=== PATIENT | female | born 1980 | race Caucasian/White ===

== ENCOUNTER 2024-04-04 14:05 | Inpatient (IN) | payer OTHER ==
[~2024-04-04] VITALS: Ht 165.1 cm; Wt 65.8 kg
[2024-04-04 14:11] VITALS: BP 99/64
[2024-04-04] MEDS ORDERED: PROZAC20 MG PO (14:16)
[2024-04-04] MEDS ORDERED: diphenhydrAMINE hydrochloride 50 MG/ML VIAL IV ONE (14:55)
[2024-04-04] MEDS ORDERED: Ketorolac Tromethamine 15 MG/ML VIAL IV ONE (14:55)
[2024-04-04] MEDS ORDERED: Metoclopramide Hydrochloride 10 MG/2 ML AMP IV ONE (14:55)
[2024-04-04] MEDS ORDERED: IOHEXOL 300 MG/ML 100 ML VIAL IV ONE (15:05)
[2024-04-04 15:11] LABS: BASO % 0.1 % (0.0-1.0); EOS # 0.1 10*3/uL (0.0-0.4); EOS % 0.9 % (1.0-4.0); HEMATOCRIT 34.1 % (37.0-47.0); LYMPH # 1.1 10*3/uL (1.3-4.4); LYMPH % 13.4 % (27.0-41.0); MEAN CELL VOLUME 93.4 fl (81.0-99.0); MEAN CORPUSCULAR HGB 30.4 pg (27.0-31.0); MEAN CORPUSCULAR HGB CONC 32.6 g/dl (33.0-37.0); MEAN PLATELET VOLUME 9.2 fl (9.6-12.3); MONO # 0.3 10*3/uL (0.1-1.0); MONO % 3.7 % (3.0-9.0); NEUT # 6.9 10*3/uL (2.3-7.9); NEUT % 81.7 % (47.0-73.0); PLATELET COUNT AUTOMATED 230 10*3/uL (130-400); RED BLOOD COUNT 3.65 10*6/uL (4.10-5.10); RED CELL DISTRI WIDTH 12.7 % (0-14.5); WHITE BLOOD COUNT 8.5 10*3/uL (4.8-10.8)
[2024-04-04 15:25] LABS: BUN 6 mg/dl (9-23); CHLORIDE 102 mmol/L (98-107); POTASSIUM 3.9 mmol/L (3.4-5.1)
[2024-04-04] MEDS ORDERED: MORPHINE Sulfate 2 MG/ML SYR IV ONE (15:40)
[2024-04-04] MEDS ORDERED: ASPIRIN, CHEWABLE 81 MG TAB PO ONE (15:40)
[2024-04-04] MEDS ORDERED: BISACODYL 5 MG TAB PO PRN (19:40)
[2024-04-04] MEDS ORDERED: ACETAMINOPHEN 325 MG TAB PO PRN (19:40)
[2024-04-04] MEDS ORDERED: Acetaminophen/Hydrocodone 5 MG/325 MG TABLET PO PRN (19:40)
[2024-04-04] MEDS ORDERED: TEMAZEPAM 15 MG CAP PO PRN (19:40)
[2024-04-04] MEDS ORDERED: MORPHINE Sulfate 2 MG/ML SYR IV PRN (19:40)
[2024-04-04] MEDS ORDERED: Magnesium Hydroxide 30 ML UDC PO PRN (19:40)
[2024-04-04] MEDS ORDERED: Ondansetron Hydrochloride 4 MG/2 ML VIAL IV PRN (19:40)
[2024-04-04 20:07] VITALS: BP 93/54
[2024-04-04 20:55] LABS: BILIRUBIN Negative (Negative); BLOOD Negative (Negative); CLARITY Clear (Clear); COLOR Yellow (Yellow); GLUCOSE Negative (Negative); KETONE Negative (Negative); LEUKO ESTERASE Trace (Negative); NITRITE Negative (Negative); SPECIFIC GRAVITY 1.025 (1.001-1.030); UROBILINOGEN 0.2 E.U./dl (0.0-1.0)
[2024-04-04 21:35] LABS: BACTERIA TRACE; WBC 0-2 wbc/hpf (0-5)
[2024-04-04] MEDS ORDERED: Enoxaparin Sodium 80 MG/0.8 ML SYR SC SCH (22:00)
[2024-04-04] MEDS ORDERED: Enoxaparin Sodium 100 MG/ML SYR SC SCH (22:00)
[2024-04-04] MEDS ORDERED: Ceftriaxone Sodium 1 GM in SYRINGE INFUSION 10 ML IV SCH (23:00)
[2024-04-05] VITALS (8 sets, daily range): BP systolic 78–149; BP diastolic 42–80
[2024-04-05] MEDS ORDERED: ADDERALL15 MG PO (02:33)
[2024-04-05] MEDS ORDERED: VYVANSE30 MG PO (02:35)
[2024-04-05] MEDS ORDERED: SODIUM CHLORIDE 0.9% 1,000 ML IV ONE (05:00)
[2024-04-05] MEDS ORDERED: fentaNYL CITRATE 100 MCG/2 ML VIAL IV ONE ×2 (06:10→08:15)
[2024-04-05 06:15] LABS: BASO % 0.2 % (0.0-1.0); EOS # 0.1 10*3/uL (0.0-0.4); EOS % 0.9 % (1.0-4.0); HEMATOCRIT 32.5 % (37.0-47.0); LYMPH # 1.2 10*3/uL (1.3-4.4); LYMPH % 13.5 % (27.0-41.0); MEAN CELL VOLUME 92.6 fl (81.0-99.0); MEAN CORPUSCULAR HGB 30.5 pg (27.0-31.0); MEAN CORPUSCULAR HGB CONC 32.9 g/dl (33.0-37.0); MEAN PLATELET VOLUME 9.9 fl (9.6-12.3); MONO # 0.4 10*3/uL (0.1-1.0); MONO % 4.1 % (3.0-9.0); NEUT # 7.4 10*3/uL (2.3-7.9); NEUT % 81.1 % (47.0-73.0); PLATELET COUNT AUTOMATED 270 10*3/uL (130-400); RED BLOOD COUNT 3.51 10*6/uL (4.10-5.10); RED CELL DISTRI WIDTH 12.8 % (0-14.5); WHITE BLOOD COUNT 9.1 10*3/uL (4.8-10.8)
[2024-04-05 06:43] LABS: ACT PARTIAL THROMBO TIME 29.4 SECONDS (20.0-32.1)
[2024-04-05 06:52] LABS: ALKALINE PHOSPHATASE 96 U/L (46-116); BUN 7 mg/dl (9-23); CHLORIDE 101 mmol/L (98-107); CHOLESTEROL 171 mg/dL (<200); LDL CHOLESTEROL 95 mg/dL (9-159); POTASSIUM 3.7 mmol/L (3.4-5.1); SGPT/ALT 15 U/L (5-49); TOTAL PROTEIN 7.1 gm/dL (6.0-8.0); TRIGLYCERIDES 69 mg/dl (<150)
[2024-04-05 07:11] LABS: FREE T4 1.18 ng/dl (0.89-1.76)
[2024-04-05 08:53] LABS: VITAMIN D, 25-HYDROXY 32.9 ng/mL (30-100)
[2024-04-05] MEDS ORDERED: ASPIRIN ENTERIC COATED 81 MG TAB PO SCH (10:00)
[2024-04-05] MEDS ORDERED: Enoxaparin Sodium 80 MG/0.8 ML SYR SC SCH (10:00)
[2024-04-05] MEDS ORDERED: Fluoxetine Hydrochloride 20 MG CAP PO SCH (10:00)
[2024-04-05] MEDS ORDERED: Amphetamine Salt Combination 5 MG TAB PO SCH (10:00)
[2024-04-05] MEDS ORDERED: ATORVASTATIN CALCIUM 40 MG TABLET PO SCH (10:00)
[2024-04-05] MEDS ORDERED: Meropenem 1 GM in SODIUM CHLORIDE 0.9% 100 ML IV SCH (14:00)
[2024-04-05] MEDS ORDERED: VANCOMYCIN/WATER FOR INJ (PEG) 250 ML IV SCH (15:00)
[2024-04-06] VITALS: BP 108/70
[2024-04-06 06:49] LABS: BASO % 0.1 % (0.0-1.0); EOS # 0.1 10*3/uL (0.0-0.4); HEMATOCRIT 30.3 % (37.0-47.0); LYMPH # 1.1 10*3/uL (1.3-4.4); LYMPH % 16.1 % (27.0-41.0); MEAN CELL VOLUME 95.3 fl (81.0-99.0); MEAN CORPUSCULAR HGB 30.8 pg (27.0-31.0); MEAN CORPUSCULAR HGB CONC 32.3 g/dl (33.0-37.0); MEAN PLATELET VOLUME 10.1 fl (9.6-12.3); MONO # 0.4 10*3/uL (0.1-1.0); MONO % 5.3 % (3.0-9.0); NEUT # 5.4 10*3/uL (2.3-7.9); NEUT % 77.2 % (47.0-73.0); PLATELET COUNT AUTOMATED 200 10*3/uL (130-400); RED BLOOD COUNT 3.18 10*6/uL (4.10-5.10); RED CELL DISTRI WIDTH 12.9 % (0-14.5)
[2024-04-06 07:19] LABS: BUN 7 mg/dl (9-23); CHLORIDE 101 mmol/L (98-107); POTASSIUM 4.2 mmol/L (3.4-5.1)
[2024-04-06 08:00] VITALS: BP 97/54
[2024-04-06] MEDS ORDERED: Ondansetron Hydrochloride 4 MG/2 ML VIAL IV ONE (09:25)
[2024-04-06 12:00] VITALS: BP 92/47
[2024-04-06] MEDS ORDERED: Technetium Tc 99M Tetrofosmi 0.23 MG KIT IJ SCH (12:45)
[2024-04-06 16:00] VITALS: BP 92/54
[2024-04-06] MEDS ORDERED: VANCOMYCIN/WATER FOR INJ (PEG) 250 ML IV SCH (16:00)
[2024-04-06 16:07] VITALS: BP 100/60
[2024-04-06 20:00] VITALS: BP 98/58
[2024-04-06] MEDS ORDERED: ATORVASTATIN CALCIUM 20 MG TAB PO SCH (22:00)
[2024-04-07] VITALS: BP 96/53
[2024-04-07] MEDS ORDERED: Regadenoson 0.4 MG/5 ML SYR IV ONE (05:18)
[2024-04-07] MEDS ORDERED: fentaNYL CITRATE 100 MCG/2 ML VIAL IV ONE (06:35)
[2024-04-07 07:21] LABS: BASO % 0.6 % (0.0-1.0); EOS # 0.1 10*3/uL (0.0-0.4); EOS % 2.6 % (1.0-4.0); HEMATOCRIT 31.4 % (37.0-47.0); LYMPH # 1.9 10*3/uL (1.3-4.4); LYMPH % 38.6 % (27.0-41.0); MEAN CORPUSCULAR HGB 30.8 pg (27.0-31.0); MEAN CORPUSCULAR HGB CONC 32.8 g/dl (33.0-37.0); MEAN PLATELET VOLUME 9.9 fl (9.6-12.3); MONO # 0.3 10*3/uL (0.1-1.0); MONO % 6.2 % (3.0-9.0); NEUT # 2.6 10*3/uL (2.3-7.9); NEUT % 51.8 % (47.0-73.0); PLATELET COUNT AUTOMATED 237 10*3/uL (130-400); RED BLOOD COUNT 3.34 10*6/uL (4.10-5.10); RED CELL DISTRI WIDTH 12.9 % (0-14.5)
[2024-04-07 07:42] LABS: ALKALINE PHOSPHATASE 92 U/L (46-116); BUN 7 mg/dl (9-23); CHLORIDE 101 mmol/L (98-107); POTASSIUM 3.8 mmol/L (3.4-5.1); SGPT/ALT 21 U/L (5-49); TOTAL PROTEIN 7.1 gm/dL (6.0-8.0)
[2024-04-07 08:00] VITALS: BP 103/58
[2024-04-07] MEDS ORDERED: VANCOMYCIN/WATER FOR INJ (PEG) 150 ML IV SCH (10:00)
[2024-04-07] MEDS ORDERED: AMINOPHYLLINE 250 MG/10 ML VIAL IV ONE ×2 (10:33→11:30)
[2024-04-07 12:00] VITALS: BP 118/70
[2024-04-07 16:00] VITALS: BP 108/61
[2024-04-07 20:00] VITALS: BP 90/48
[2024-04-08] VITALS: BP 92/53
[2024-04-08 06:46] LABS: BASO % 0.8 % (0.0-1.0); EOS # 0.1 10*3/uL (0.0-0.4); EOS % 2.7 % (1.0-4.0); HEMATOCRIT 31.3 % (37.0-47.0); LYMPH % 40.7 % (27.0-41.0); MEAN CELL VOLUME 93.7 fl (81.0-99.0); MEAN CORPUSCULAR HGB 30.5 pg (27.0-31.0); MEAN CORPUSCULAR HGB CONC 32.6 g/dl (33.0-37.0); MEAN PLATELET VOLUME 9.7 fl (9.6-12.3); MONO # 0.4 10*3/uL (0.1-1.0); MONO % 8.4 % (3.0-9.0); NEUT # 2.3 10*3/uL (2.3-7.9); PLATELET COUNT AUTOMATED 245 10*3/uL (130-400); RED BLOOD COUNT 3.34 10*6/uL (4.10-5.10); RED CELL DISTRI WIDTH 12.9 % (0-14.5); WHITE BLOOD COUNT 4.9 10*3/uL (4.8-10.8)
[2024-04-08 07:14] LABS: BUN 7 mg/dl (9-23); CHLORIDE 100 mmol/L (98-107); POTASSIUM 4.1 mmol/L (3.4-5.1)
[2024-04-08 08:00] VITALS: BP 103/53
[2024-04-08] MEDS ORDERED: ATORVASTATIN CA20 M1 PO (09:45)
[2024-04-08] MEDS ORDERED: BACTRIM 400-801 EACH PO (09:45)
[2024-04-08] MEDS ORDERED: ASPIRIN ADULT L81 M2 PO (09:45)
[2024-04-08] MEDS ORDERED: HYDROCODONE-AC1 EAC1 PO (09:47)
== END 2024-04-08 11:15 | disposition home or self-care (01) | DRG 190 ==
LOC: ED 14:05 → 4E 18:43 → EDHOLD 18:43 → 4E 20:21
PROVIDERS: Emergency Medicine; Family Medicine; Internal Medicine; Student in an Organized Health Care Education/Training Program; ADMIT Internal Medicine; ATTEND Internal Medicine
PROC: 4A02XM4 Measurement of Cardiac Total Activity, External Approach (ICD-10-PCS; principal; 2024-04-07)
PROC: 3E033HZ Introduction of Radioactive Substance into Peripheral Vein, Percutaneous Approach (ICD-10-PCS; 2024-04-07)
DX: I21.4 Non-ST elevation (NSTEMI) myocardial infarction (principal); N12 Tubulo-interstitial nephritis, not specified as acute or chronic; K85.90 Acute pancreatitis without necrosis or infection, unspecified; F90.9 Attention-deficit hyperactivity disorder, unspecified type; F41.1 Generalized anxiety disorder; R82.71 Bacteriuria; D64.9 Anemia, unspecified; R73.9 Hyperglycemia, unspecified; K76.0 Fatty (change of) liver, not elsewhere classified; K59.00 Constipation, unspecified; Z82.49 Family history of ischemic heart disease and other diseases of the circulatory system; Z79.899 Other long term (current) drug therapy; Z90.710 Acquired absence of both cervix and uterus; Z87.891 Personal history of nicotine dependence; Z79.01 Long term (current) use of anticoagulants; Z79.2 Long term (current) use of antibiotics

== ENCOUNTER 2024-04-13 14:11 | Emergency (ER) | payer OTHER ==
[~2024-04-13] VITALS: Ht 165.1 cm; Wt 71.9 kg
[~2024-04-13 14:11] MED LIST: ADDERALL15 MG PO; ASPIRIN ADULT L81 M2 PO; ATORVASTATIN CA20 M1 PO; BACTRIM 400-801 EACH PO; HYDROCODONE-AC1 EAC1 PO; PROZAC20 MG PO; VYVANSE30 MG PO
[2024-04-13] MEDS ORDERED: AMPHETAMINE SAL15 M1 PO (15:06)
[2024-04-13] MEDS ORDERED: SODIUM CHLORIDE 0.9% 1,000 ML IV SCH (15:15)
[2024-04-13] MEDS ORDERED: Ondansetron Hydrochloride 4 MG/2 ML VIAL IV ONE (15:20)
[2024-04-13 15:41] LABS: EOS # 0.1 10*3/uL (0.0-0.4); EOS % 3.4 % (1.0-4.0); HEMATOCRIT 33.3 % (37.0-47.0); LYMPH # 0.2 10*3/uL (1.3-4.4); LYMPH % 5.3 % (27.0-41.0); MEAN CELL VOLUME 92.2 fl (81.0-99.0); MEAN CORPUSCULAR HGB 30.5 pg (27.0-31.0); MEAN PLATELET VOLUME 9.5 fl (9.6-12.3); MONO # 0.2 10*3/uL (0.1-1.0); MONO % 4.6 % (3.0-9.0); NEUT # 3.6 10*3/uL (2.3-7.9); NEUT % 86.2 % (47.0-73.0); PLATELET COUNT AUTOMATED 182 10*3/uL (130-400); RED BLOOD COUNT 3.61 10*6/uL (4.10-5.10); RED CELL DISTRI WIDTH 13.2 % (0-14.5); WHITE BLOOD COUNT 4.1 10*3/uL (4.8-10.8)
[2024-04-13 15:55] LABS: ACT PARTIAL THROMBO TIME 27.7 SECONDS (20.0-32.1)
[2024-04-13 15:58] LABS: ALKALINE PHOSPHATASE 92 U/L (46-116); BUN 9 mg/dl (9-23); CHLORIDE 103 mmol/L (98-107); LIPASE 32 U/L (12-53); POTASSIUM 3.8 mmol/L (3.4-5.1); SGPT/ALT 47 U/L (5-49)
[2024-04-13] MEDS ORDERED: Ketorolac Tromethamine 30 MG/ML VIAL IV ONE (16:20)
[2024-04-13] MEDS ORDERED: Vancomycin Hydrochloride 250 ML IV ONE (18:40)
[2024-04-13] MEDS ORDERED: Piperacillin Sodium/Tazobact 50 ML IV ONE (18:40)
[2024-04-13] MEDS ORDERED: ACETAMINOPHEN 325 MG TAB PO ONE (19:20)
[2024-04-13 21:10] LABS: BILIRUBIN Negative (Negative); BLOOD Negative (Negative); CLARITY Clear (Clear); COLOR Yellow (Yellow); GLUCOSE Negative (Negative); KETONE 1+ (Negative); LEUKO ESTERASE Negative (Negative); NITRITE Negative (Negative); PH 6.5 (4.5-8.0); UROBILINOGEN 0.2 E.U./dl (0.0-1.0)
== END 2024-04-13 22:45 | disposition home or self-care (01) ==
LOC: ED 14:11
PROVIDERS: Nurse Practitioner
DX: B34.9 Viral infection, unspecified (principal); Z20.822 Contact with and (suspected) exposure to COVID-19; R11.0 Nausea; R42 Dizziness and giddiness; M79.642 Pain in left hand; F41.9 Anxiety disorder, unspecified; F32.A Depression, unspecified; F90.9 Attention-deficit hyperactivity disorder, unspecified type; F17.200 Nicotine dependence, unspecified, uncomplicated; Z90.710 Acquired absence of both cervix and uterus; Z87.891 Personal history of nicotine dependence

== ENCOUNTER → 2024-07-15 | Outpatient (CLI) | payer OTHER ==
[~2024-07-15] MED LIST changes: +AMPHETAMINE SAL15 M1 PO
[2024-07-15 14:38] LABS: BASO % 0.4 % (0.0-1.0); EOS # 0.1 10*3/uL (0.0-0.4); EOS % 1.2 % (1.0-4.0); HEMATOCRIT 37.9 % (37.0-47.0); LYMPH # 1.9 10*3/uL (1.3-4.4); MEAN CELL VOLUME 88.3 fl (81.0-99.0); MEAN CORPUSCULAR HGB 30.3 pg (27.0-31.0); MEAN CORPUSCULAR HGB CONC 34.3 g/dl (33.0-37.0); MONO # 0.4 10*3/uL (0.1-1.0); MONO % 6.7 % (3.0-9.0); NEUT # 3.3 10*3/uL (2.3-7.9); NEUT % 58.5 % (47.0-73.0); PLATELET COUNT AUTOMATED 239 10*3/uL (130-400); RED BLOOD COUNT 4.29 10*6/uL (4.10-5.10); RED CELL DISTRI WIDTH 12.3 % (0-14.5); WHITE BLOOD COUNT 5.6 10*3/uL (4.8-10.8)
[2024-07-15 15:11] LABS: ALKALINE PHOSPHATASE 80 U/L (46-116); BUN 11 mg/dl (9-23); CHLORIDE 101 mmol/L (98-107); POTASSIUM 3.8 mmol/L (3.4-5.1); SGPT/ALT 13 U/L (5-49); TOTAL PROTEIN 8.1 gm/dL (6.0-8.0)
== END | disposition home or self-care (01) ==
LOC: LAB 13:39
PROVIDERS: ATTEND Internal Medicine Cardiovascular Disease
DX: R06.09 Other forms of dyspnea (principal)

== ENCOUNTER → 2024-08-04 | Outpatient (CLI) | payer OTHER ==
[~2024-08-04] MED LIST changes: +Albuterol Sulfate 2.5 MG/3 ML VIAL NEB ONE
== END | disposition home or self-care (01) ==
LOC: CP 07-28 10:30
PROVIDERS: ATTEND Internal Medicine Cardiovascular Disease
DX: R06.09 Other forms of dyspnea (principal)

== ENCOUNTER 2024-11-05 13:52 | Emergency (ER) | payer OTHER ==
[~2024-11-05] VITALS: Ht 175.2 cm; Wt 73.0 kg
[~2024-11-05 13:52] MED LIST changes: -Albuterol Sulfate 2.5 MG/3 ML VIAL NEB ONE
[2024-11-05] MEDS ORDERED: SODIUM CHLORIDE 0.9% 1,000 ML IV ONE (14:25)
[2024-11-05] MEDS ORDERED: diphenhydrAMINE hydrochloride 50 MG/ML VIAL IV ONE (14:25)
[2024-11-05] MEDS ORDERED: Metoclopramide Hydrochloride 10 MG/2 ML VIAL IV ONE (14:25)
[2024-11-05] MEDS ORDERED: Ketorolac Tromethamine 15 MG/ML VIAL IV ONE (14:25)
[2024-11-05 14:42] LABS: BASO % 0.3 % (0.0-1.0); EOS # 0.2 10*3/uL (0.0-0.4); EOS % 3.4 % (1.0-4.0); HEMATOCRIT 36.9 % (37.0-47.0); MEAN CELL VOLUME 91.1 fl (81.0-99.0); MEAN CORPUSCULAR HGB 29.6 pg (27.0-31.0); MEAN CORPUSCULAR HGB CONC 32.5 g/dl (33.0-37.0); MEAN PLATELET VOLUME 9.9 fl (9.6-12.3); MONO # 0.4 10*3/uL (0.1-1.0); MONO % 6.5 % (3.0-9.0); NEUT # 4.1 10*3/uL (2.3-7.9); NEUT % 64.1 % (47.0-73.0); PLATELET COUNT AUTOMATED 231 10*3/uL (130-400); RED BLOOD COUNT 4.05 10*6/uL (4.10-5.10); RED CELL DISTRI WIDTH 11.9 % (0-14.5); WHITE BLOOD COUNT 6.5 10*3/uL (4.8-10.8)
[2024-11-05 15:20] LABS: BUN 11 mg/dl (9-23); CHLORIDE 103 mmol/L (98-107); POTASSIUM 4.3 mmol/L (3.4-5.1)
[2024-11-05] MEDS ORDERED: IBU800 M2 PO (15:47)
[2024-11-05] MEDS ORDERED: AVPAK AZITHROM250 M1 PO (15:47)
[2024-11-05] MEDS ORDERED: REGLAN10 M1 PO (15:47)
== END 2024-11-05 16:03 | disposition home or self-care (01) ==
LOC: ED 13:52
PROVIDERS: Emergency Medicine
DX: R51.9 Headache, unspecified (principal); Z20.822 Contact with and (suspected) exposure to COVID-19; R11.2 Nausea with vomiting, unspecified; M79.10 Myalgia, unspecified site; R19.7 Diarrhea, unspecified; F90.9 Attention-deficit hyperactivity disorder, unspecified type; F41.9 Anxiety disorder, unspecified; Z90.710 Acquired absence of both cervix and uterus; Z87.891 Personal history of nicotine dependence

== ENCOUNTER 2025-05-29 06:17 | Emergency (ER) | payer OTHER ==
[~2025-05-29] VITALS: Ht 165.1 cm; Wt 64.4 kg
[~2025-05-29 06:17] MED LIST changes: +AVPAK AZITHROM250 M1 PO; +IBU800 M2 PO; +REGLAN10 M1 PO
[2025-05-29 06:58] LABS: BASO # 0.0 10*3/uL (0.0-0.1); BASO % 0.4 % (0.0-1.0); EOS # 0.2 10*3/uL (0.0-0.4); EOS % 2.9 % (1.0-4.0); MEAN CELL VOLUME 90.7 fl (81.0-99.0); MEAN CORPUSCULAR HGB 30.1 pg (27.0-31.0); MEAN PLATELET VOLUME 10.8 fl (9.6-12.3); MONO # 0.3 10*3/uL (0.1-1.0); MONO % 5.5 % (3.0-9.0); NEUT # 3.8 10*3/uL (2.3-7.9); NEUT % 73.6 % (47.0-73.0); NUCLEATED RED BLOOD CELL 0.0 % (0.0-0.0); NUCLEATED RED BLOOD CELL 0.0 10*3/uL (0.0-0.0); PLATELET COUNT AUTOMATED 175 10*3/uL (130-400); RED CELL DISTRI WIDTH 13.3 % (0-14.5)
[2025-05-29 07:19] LABS: BUN 17 mg/dl (9-23); SGPT/ALT 13 U/L (5-49)
== END 2025-05-29 10:49 | disposition home or self-care (01) ==
LOC: ED 06:17
PROVIDERS: Emergency Medicine
DX: R53.83 Other fatigue (principal); R07.89 Other chest pain; R11.0 Nausea; Z79.82 Long term (current) use of aspirin; Z79.899 Other long term (current) drug therapy; Z90.711 Acquired absence of uterus with remaining cervical stump; Z87.891 Personal history of nicotine dependence